=== PATIENT | female | born 1960 | race American Indian/Alaskan Native ===

== ENCOUNTER 2018-04-23 07:01 | Outpatient (CLI) | payer MEDICAID ==
--- NOTE | 2018-04-23 09:25 | Fluoroscopy Report ---
UPPER GI SERIES WITH AIR-CONTRAST History: Left upper quadrant pain, nausea. Comparison: None at this facility. Findings: Patient gives a history of gastric bypass surgery in January of 2018. [employer] film of the abdomen is unremarkable. 43 fluoroscopic images were saved during this exam. Deglutition was normal. There is no evidence for aspiration. The esophagus is normal caliber and mucosal pattern throughout. No hiatal hernia or reflux was witnessed during this exam. Occasional tertiary contractions in the distal esophagus were witnessed consistent with mild esophageal spasm. A small gastric remnant is identified which is unremarkable. There is no obvious ulceration, leakage of contrast or obstruction. Multiple proximal small bowel loops are opacified quickly which demonstrate no abnormality. The anastomosis site to the gastric remnant appears unremarkable. Impression: Mild esophageal spasm was witnessed. Gastric bypass surgery changes are identified which appear intact. No evidence for obstruction, ulceration or leakage of contrast.
== END 2018-04-23 07:02 | disposition home or self-care (01) ==
LOC: FLUORO 07:01
PROVIDERS: ATTEND Specialist
DX: R11.0 Nausea (principal); R10.12 Left upper quadrant pain
CPT/HCPCS: 74247